=== PATIENT | male | born 1945 | race Caucasian/White ===

== ENCOUNTER → 2024-07-20 09:11 | Outpatient (CLI) | payer MEDICARE, SELFPAY ==
--- NOTE | 2024-07-20 09:21 | DI.CT.S_ITS ---
PROCEDURE: CT HEAD/BRAIN WO CON INDICATIONS: SUBDURAL HEMATOMA TECHNIQUE: Noncontrast 4.5 mm thick angled axial sections acquired from the foramen magnum to the vertex, with coronal and sagittal reformats. For radiation dose reduction, the following was used: automated exposure control, adjustment of mA and/or kV according to patient size. COMPARISON: None. FINDINGS: Image quality: Diagnostic. CSF spaces: Basal cisterns are patent. No extra-axial fluid collections. The ventricles are symmetric in size and shape. Brain: There is an 8 mm predominantly left frontal extra-axial hyperdense collection. No midline shift. There is cerebral volume loss for age, with resultant ventricular and sulcal prominence. There are periventricular and deep white matter chronic small vessel ischemic changes. There is intracranial internal carotid artery atherosclerosis. Skull and face: Left craniotomy changes are present. Sinuses: Visualized sinuses and mastoids are clear. IMPRESSION: Left frontal subdural hematoma without midline shift. Postsurgical changes are present and no priors are available for comparison. If priors become available, images can be compared. By given history, surgery was recent and subdural hematoma was known. Dictated by: Angle Jones M.D. on 07/20/2024 at 10:55 Approved by: Angle Jones M.D. on 07/20/2024 at 11:07
[2024-07-20 10:21] LABS: Hematocrit 38.6 % (41-53); Hemoglobin 12.2 g/dL (13.5-17.5); Mean Corpuscular HGB Conc 31.7 % (30-36); Mean Corpuscular Hemoglobin 28.2 PG (26-34); Platelet Count 122 X10^3/uL (150-400); Red Blood Cell Count 4.33 X10^6/uL (4.5-5.9); White Blood Cell Count 11.5 X10^3/uL (4.5-11.0)
[2024-07-20 10:40] LABS: Albumin 4.2 g/dL (3.5-5.0); BUN Creatinine Ratio 13.9 (6-22); Blood Urea Nitrogen 40 mg/dL (9-20); Calcium 9.7 mg/dL (8.4-10.2); Carbon Dioxide 21 mmol/L (22-32); Chloride 107 mmol/L (98-107); Estimated Glomerular Filt Rate 22 mL/min (>60); Glucose 138 mg/dL (80-110); HEMOLYSIS < 15 (0-50); Magnesium 1.9 mg/dL (1.6-2.3); Phosphorous 4.3 mg/dL (2.3-3.7); Potassium 5.3 mmol/L (3.4-5.1); Sodium 137 mmol/L (137-145)
[2024-07-20 10:55] LABS: Vitamin D 25 Hydroxy (D3) 18.3 ng/mL (30.0-100.0)
[2024-07-20 12:10] LABS: Appearance Urine UA CLEAR; Bilirubin Urine UA NEGATIVE (NEGATIVE); Color Urine UA YELLOW; Glucose Urine UA TRACE g/dL (Negative); Ketones Urine UA NEGATIVE (NEGATIVE); Leukocyte Esterase Urine UA NEGATIVE (NEGATIVE); Nitrite Urine UA NEGATIVE (Negative); Occult Blood Urine UA 3+ (Negative); Protein Urine UA 2+ (Negative); Specific Gravity Urine UA >=1.030 (1.000-1.035); Urobilinogen Urine UA 0.2 E.U./dL (0.2); pH Urine UA 5.5 (4.5-8.0)
[2024-07-20 12:24] LABS: Bacteria Urine None Seen; Culture Indicated Urine Specimen Cultured; RBC Urine 5-10/HPF (0-5/HPF); Squamous Epithelial Cell Urine None Seen (0-5/HPF); Urine Volume 10mL (spun); WBC Urine 1-5/HPF (0-5/HPF)
[2024-07-20 12:36] LABS: Protein (Total) Urine Random 399 mg/dL (0-12)
[2024-07-22 08:07] LABS: Parathyroid Hormone Int 30 pg/mL (15-65)
[2024-07-22 15:09] LABS: Creatinine Urine Random 141.89 mg/dL
[2024-07-22 15:16] LABS: Protein (Total) Urine Random 369 mg/dL (0-12)
[2024-07-23 13:36] LABS: Albumin 3.3 g/dL (2.9-4.4); Alpha-1-Globulin 0.3 g/dL (0.0-0.4); Alpha-2-Globulin 1.1 g/dL (0.4-1.0); Gamma Globulin 1.1 g/dL (0.4-1.8); Globulin Total 3.5 g/dL (2.2-3.9); Protein, Total 6.8 g/dL (6.0-8.5)
== END ==
PROVIDERS: Internal Medicine Nephrology; Referring Provider Neurological Surgery; Visit Provider Neurological Surgery
DX: S06.5XAA Traumatic subdural hemorrhage with loss of consciousness status unknown, initial encounter (principal); N18.4 Chronic kidney disease, stage 4 (severe); E11.21 Type 2 diabetes mellitus with diabetic nephropathy
CPT/HCPCS: 36415; 70450; 80069; 81001; 82306; 82570; 83735; 83970; 84155; 84156; 84165; 85027; 87086

== ENCOUNTER → 2024-08-24 14:19 | Outpatient (CLI) | payer MEDICARE, SELFPAY ==
[2024-08-24 14:55] LABS: Hematocrit 43.2 % (41-53); Hemoglobin 14.1 g/dL (13.5-17.5); Mean Corpuscular HGB Conc 32.5 % (30-36); Mean Corpuscular Hemoglobin 28.6 PG (26-34); Mean Corpuscular Volume 88.1 fL (80-100); Platelet Count 123 X10^3/uL (150-400); Red Blood Cell Count 4.91 X10^6/uL (4.5-5.9); Red Cell Distribution Width 16.9 % (11.6-14.8); White Blood Cell Count 11.4 X10^3/uL (4.5-11.0)
[2024-08-24 15:19] LABS: Albumin 4.2 g/dL (3.5-5.0); BUN Creatinine Ratio 13.3 (6-22); Blood Urea Nitrogen 38 mg/dL (9-20); Calcium 9.5 mg/dL (8.4-10.2); Carbon Dioxide 24 mmol/L (22-32); Chloride 105 mmol/L (98-107); Estimated Glomerular Filt Rate 22 mL/min (>60); Glucose 88 mg/dL (80-110); HEMOLYSIS < 15 (0-50); Magnesium 1.7 mg/dL (1.6-2.3); Phosphorous 4.5 mg/dL (2.3-3.7); Potassium 4.9 mmol/L (3.4-5.1); Sodium 141 mmol/L (137-145)
[2024-08-24 15:35] LABS: Vitamin D 25 Hydroxy (D3) 16.2 ng/mL (30.0-100.0)
[2024-08-24 16:05] LABS: Protein (Total) Urine Random 726 mg/dL (0-12)
[2024-08-26 10:12] LABS: Parathyroid Hormone Int 48 pg/mL (15-65)
== END ==
LOC: LAB 14:21
PROVIDERS: Referring Provider Internal Medicine Nephrology; Visit Provider Internal Medicine Nephrology
DX: E11.21 Type 2 diabetes mellitus with diabetic nephropathy (principal); N18.4 Chronic kidney disease, stage 4 (severe)
CPT/HCPCS: 36415; 80069; 82306; 83735; 83970; 84155; 84156; 84165; 85027

== ENCOUNTER → 2024-09-12 09:38 | Outpatient (CLI) | payer MEDICARE, SELFPAY ==
--- NOTE | 2024-09-12 09:42 | DI.CT.S_ITS ---
PROCEDURE: CT HEAD/BRAIN WO CON INDICATIONS: ACUTE ON CHRONIC INTRACRANIAL SUBDURAL HEMATOMA TECHNIQUE: Noncontrast 4.5 mm thick angled axial sections acquired from the foramen magnum to the vertex, with coronal and sagittal reformats. For radiation dose reduction, the following was used: automated exposure control, adjustment of mA and/or kV according to patient size. COMPARISON: [facility], CT, CT HEAD/BRAIN WO CON, 07/20/2024, 9:27. Outside Facility, CT, CT HEAD/BRAIN WO CON, 06/22/2024, 11:00. Outside Facility, CT, CT HEAD/BRAIN WO CON, 05/10/2024, 13:38. FINDINGS: Image quality: Diagnostic. CSF spaces: Basal cisterns are patent. The ventricles are symmetric in size and shape. Brain: On the left side, there is a small amount of residual subdural hemorrhage seen, with a maximum thickness of 2-3 mm. No left-sided subdural hygroma can be seen. The total volume of extra-axial fluid has clearly improved compared to the 07/20/2024 CT. No intracranial masses. There is cerebral volume loss for age, with resultant ventricular and sulcal prominence. There are periventricular and deep white matter chronic small vessel ischemic changes. There is intracranial internal carotid artery atherosclerosis. Skull and face: Left-sided craniotomy change can be seen. Calvarium and visualized facial bones appear intact, without suspicious lesions. Sinuses: Visualized sinuses and mastoids are clear. IMPRESSION: Resolving left-sided subdural hemorrhage, with a mild left-sided subdural hygroma seen. No new hemorrhage is seen. Prior left-sided craniotomy. Dictated by: Mickey Blanco M.D. on 09/12/2024 at 10:22 Approved by: Mickey Blanco M.D. on 09/12/2024 at 10:24
== END ==
LOC: CT 09:40
PROVIDERS: Referring Provider Neurological Surgery; Visit Provider Neurological Surgery
DX: I62.01 Nontraumatic acute subdural hemorrhage (principal); I62.03 Nontraumatic chronic subdural hemorrhage
CPT/HCPCS: 70450